=== PATIENT | female | born 1990 | race African-American/Black ===

== ENCOUNTER 2017-06-11 14:48 | Emergency (ER) | payer MEDICAID, OTHER ==
[~2017-06-11] VITALS: Ht 160 cm; Wt 97.5 kg
[~2017-06-11 14:48] MED LIST: CYCL10TA9 PO; NAPR-243 PO; PNT40TEC PO
[2017-06-11] MEDS ORDERED: LEVO25TA5 (15:16)
[2017-06-11] MEDS ORDERED: KETOROLAC 30 MG/ML VIAL IM ONE (15:30)
[2017-06-11] MEDS ORDERED: ONDANSETRON 4 MG (ZOFRAN) ORAL DISSOLVE TAB PO ONE (15:30)
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
[2017-06-11] MEDS ORDERED: ONDA4TAB11 PO (15:48)
[2017-06-11 16:06] VITALS: BP 152/94
--- OUTSIDE RECORDS SUMMARY | 2017-06-15 04:57 | XMS REPORT ---
Author Author BOYD MEAD [facility] eClinicalWorks Address Unknown Phone Unavailable Care Team Providers Care Service Station Cashier Name Role Phone BOYD MEAD CP Unavailable Allergies, Adverse Reactions, Alerts Substance Reaction Event Type N.K.D.A. Info Not Available Non Drug Allergy Problems Problem Type Condition Code Onset Dates Condition Status Problem Asthma, unspecified, unspecified status 493.90 Active Problem Obesity, unspecified 278.00 Active Problem Unspecified hypothyroidism 244.9 Active Assessment Strep pharyngitis J02.0 Active Medications Medication Code System Code Instructions Start Date End Date Status Dosage Amoxicillin [facility] [address]-65 250 MG Orally 3 times a day Feb 20, 2016 Mar 01, 2016 1 capsule Procedures Procedure Coding System Code Date STREP A ASSAY W/OPTIC CPT-4 27328 Feb 20, 2016 Office Visit, Est Pt., Level 2 CPT-4 89114 Feb 20, 2016 Vital Signs Date/Time: Feb 20, 2016 Cardiac Monitoring Heart Rate 76 bpm Weight 243 lbs Height 63 in BMI 43.04 Index Blood Pressure Diastolic 80 mmHg Blood Pressure Systolic 132 mmHg Results Name Result Date Reference Range Unit Abnormality Flag STREP A (IN HOUSE) ----STREP A POSITIVE [id number] ----Control + [id number] ----Lot # [id number] ----Exp date 10/23/201720160220 Summary Purpose eClinicalWorks Submission
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
--- OUTSIDE RECORDS SUMMARY | 2017-06-15 04:57 | XMS REPORT ---
Author Author JENSEN MINA [facility] eClinicalWorks Address Unknown Phone Unavailable Care Team Providers Care Twister Doffer Name Role Phone JENSEN MINA CP Unavailable Allergies, Adverse Reactions, Alerts Substance Reaction Event Type N.K.D.A. Info Not Available Non Drug Allergy Problems Problem Type Condition Code Onset Dates Condition Status Problem Asthma, unspecified, unspecified status 493.90 Active Problem Obesity, unspecified 278.00 Active Problem Unspecified hypothyroidism 244.9 Active Assessment Low grade squamous intraepithelial lesion (LGSIL) on Papanicolaou smear of cervix R87.612 Active Medications Medication Code System Code Instructions Start Date End Date Status Dosage Depo-Provera [facility] [address]-74 150 MG/ML Intramuscular 1 ml Procedures Procedure Coding System Code Date ENDOCERV CURETTAGE W/SCOPE CPT-4 44149 Apr 06, 2015 URINE TEST CPT-4 24861 Apr 06, 2015 Vital Signs Date/Time: Apr 06, 2015 Temperature 97.9 F Weight 217.2 lbs Height 63 in BMI 38.47 Index Blood Pressure Diastolic 82 mmHg Blood Pressure Systolic 124 mmHg Cardiac Monitoring Heart Rate 80 bpm Results Name Result Date Reference Range Unit Abnormality Flag TEST, URINE (IN HOUSE) Summary Purpose eClinicalWorks Submission
--- OUTSIDE RECORDS SUMMARY | 2017-06-15 04:57 | XMS REPORT ---
Author Author BOYD MEAD [facility] Address [address] [place] [address] Care Team Providers Care Medical Receptionist Medical Assistant Name Role Phone BOYD MEAD Unavailable PROBLEMS Type Condition ICD9-CM Code [id number] Code Onset Dates Condition Status SNOMED Code Problem Tension headache G44.209 Active 324070146 Problem Asthma, unspecified, unspecified status 493.90 Active 00877333 Assessment Tension headache G44.209 Apr, Active 223373345 ALLERGIES Substance Reaction Event Type Date Status N.K.D.A. Unknown Non Drug Allergy Apr, Unknown SOCIAL HISTORY No smoking Hx information available PLAN OF CARE VITAL SIGNS Height 63 in 2016-04-25 Weight 235 lbs 2016-04-25 Heart Rate 74 bpm 2016-04-25 Respiratory Rate 20 2016-04-25 BMI 41.62 kg/m2 2016-04-25 Blood pressure systolic 130 mmHg 2016-04-25 Blood pressure diastolic 80 mmHg 2016-04-25 MEDICATIONS Medication Instructions Dosage Frequency Start Date End Date Duration Status Depo-Provera 150 MG/ML 1 ml Active Diclofenac Sodium 75 MG Orally Twice a day 1 tablet with food or milk 12h Apr, May, 30 day(s) Active Cyclobenzaprine HCl 10 mg Orally hs 1 tablet Apr, Active Fioricet 50-325-40 MG Orally every 6 hrs 1 tablet as needed 6h Apr, Active RESULTS No Results PROCEDURES Procedure Date Ordered Related Diagnosis Body Site Office Visit, Est Pt., Level 2 Apr 25, 2016 IMMUNIZATIONS No Known Immunizations
--- OUTSIDE RECORDS SUMMARY | 2017-06-15 04:57 | XMS REPORT ---
Author Author ANA BERTRAND Organization eClinicalWorks Address Unknown Phone Unavailable Care Team Providers Care Silo Operator Name Role Phone ANA BERTRAND CP Unavailable Allergies, Adverse Reactions, Alerts Substance Reaction Event Type N.K.D.A. Info Not Available Non Drug Allergy Problems Problem Type Condition Code Onset Dates Condition Status Assessment Contraception Z30.9 Active Assessment test negative Z32.02 Active Assessment Screening for STD (sexually transmitted disease) Z11.3 Active Problem Asthma, unspecified, unspecified status 493.90 Active Problem Obesity, unspecified 278.00 Active Problem Unspecified hypothyroidism 244.9 Active Assessment Evaluation regarding contraception options Z30.09 Active Assessment Breast cancer screening V76.10 Active Assessment Well woman exam Z01.419 Active Assessment Routine gynecological examination V72.31 Active Medications No Known Medications Procedures Procedure Coding System Code Date No Charge CPT-4 27735 Mar 10, 2015 SPECIMEN HANDLING CPT-4 86165 Mar 10, 2015 URINE TEST CPT-4 11233 Mar 10, 2015 VENIPUNCT, ROUTINE* CPT-4 50986 Mar 10, 2015 Preventive Care Est Pt. Age 18-39 CPT-4 21915 Mar 10, 2015 THER/PROPH/DIAG INJ, SC/IM CPT-4 73516 Mar 10, 2015 DEPO PROVERA (150 MG/ML) CPT-4 J1050 Mar 10, 2015 Vital Signs Date/Time: Mar 10, 2015 Temperature 98 F Weight 217 lbs Height 63 in BMI 38.44 Index Blood Pressure Diastolic 70 mmHg Blood Pressure Systolic 128 mmHg Cardiac Monitoring Heart Rate 76 bpm Results Name Result Date Reference Range Unit Abnormality Flag TEST, URINE (IN HOUSE) Summary Purpose eClinicalWorks Submission
--- OUTSIDE RECORDS SUMMARY | 2017-06-15 04:57 | XMS REPORT ---
Author Author JENSEN MINA [facility] eClinicalWorks Address Unknown Phone Unavailable Care Team Providers Care Global Logistics Analyst Name Role Phone JENSEN MINA Unavailable Allergies No Known Allergies Problems Problem Type Condition Code Onset Dates Condition Status Problem Asthma, unspecified, unspecified status 493.90 Active Problem Obesity, unspecified 278.00 Active Problem Unspecified hypothyroidism 244.9 Active Medications No Known Medications Results No Known Results Summary Purpose eClinicalWorks Submission
--- OUTSIDE RECORDS SUMMARY | 2017-06-15 04:57 | XMS REPORT ---
Author Author DUSTY NGUYEN [facility] Address [address] [place] [address] Care Team Providers Care Pipe And Tank Fabricator Name Role Phone DUSTY NGUYEN Unavailable PROBLEMS Type Condition ICD9-CM Code YDW02-JJ Code Onset Dates Condition Status SNOMED Code Problem Tension headache G44.209 Active 734819453 ALLERGIES No Known Allergies SOCIAL HISTORY Never Assessed PLAN OF CARE VITAL SIGNS Height 63 in 2016-07-15 Weight 238.2 lbs 2016-07-15 Temperature 98.0 degrees Fahrenheit 2016-07-15 Heart Rate 111 bpm 2016-07-15 Respiratory Rate 20 2016-07-15 Oximetry on room air:98 % 2016-07-15 BMI 42.19 kg/m2 2016-07-15 Blood pressure systolic 122 mmHg 2016-07-15 Blood pressure diastolic 80 mmHg 2016-07-15 MEDICATIONS Medication Instructions Dosage Frequency Start Date End Date Duration Status Doxycycline Hyclate 100 mg Orally every 12 hrs 1 capsule 12h Jun, Jul, 10 days Active Tessalon Perles 100 mg Orally Three times a day 1 capsule as needed 8h Jun, Active RESULTS No Results PROCEDURES Procedure Date Ordered Result Body Site MEASURE BLOOD OXYGEN LEVEL Jul 15, 2016 IMMUNIZATIONS No Known Immunizations MEDICAL (GENERAL) HISTORY Type Description Date Medical History Hypothyroidism Surgical History section 2008
--- OUTSIDE RECORDS SUMMARY | 2017-06-15 04:57 | XMS REPORT ---
Author Author DUSTY NGUYEN [facility] Address [address] [place] [address] Care Team Providers Care Manager Video Games Name Role Phone DUSTY NGUYEN Unavailable PROBLEMS Type Condition ICD9-CM Code AYR68-NA Code Onset Dates Condition Status SNOMED Code Problem Tension headache G44.209 Active 442654405 ALLERGIES No Information SOCIAL HISTORY Never Assessed PLAN OF CARE VITAL SIGNS MEDICATIONS Medication Instructions Dosage Frequency Start Date End Date Duration Status Amoxicillin 500 mg Orally 3 times a day 1 capsule 8h Jul, Jul, 10 day(s) Active RESULTS No Results PROCEDURES No Known procedures IMMUNIZATIONS No Known Immunizations MEDICAL (GENERAL) HISTORY Type Description Date Medical History Hypothyroidism Surgical History section 2008
== END 2017-06-11 16:05 | disposition home or self-care (01) ==
LOC: EDUNIT# 14:48 → ER 14:50
DX: S06.0X0A Concussion without loss of consciousness, initial encounter (principal); J45.909 Unspecified asthma, uncomplicated; E03.9 Hypothyroidism, unspecified; F17.200 Nicotine dependence, unspecified, uncomplicated; Y00.XXXA Assault by blunt object, initial encounter; Y92.10 Unspecified residential institution as the place of occurrence of the external cause
CPT/HCPCS: 96372; 99284

== ENCOUNTER 2018-10-13 21:50 | Emergency (ER) | payer OTHER ==
[~2018-10-13] VITALS: Ht 160 cm; Wt 89.4 kg
[~2018-10-13 21:50] MED LIST changes: +LEVO25TA5; +ONDA4TAB11 PO
--- OUTSIDE RECORDS SUMMARY | 2018-10-13 21:58 | XMS REPORT ---
Author Author Migration, Doctor Organization [facility] Address Unknown Phone Unavailable Care Team Providers Care Lead Technician Name Role Phone Migration, Doctor Unavailable Unavailable PROBLEMS Type Condition ICD9-CM Code VFH86-FH Code Onset Dates Condition Status SNOMED Code Problem Obesity (BMI 30-39.9) E66.9 Active 243972014 Problem History of hypothyroidism Z86.39 Active 896204559 Problem Hypothyroidism (acquired) E03.9 Active 028766915 Problem Tension headache G44.209 Active 934826388 ALLERGIES No Information ENCOUNTERS Encounter Location Date Diagnosis [facility] [address] [address] Jul, Dizziness R42 ; Bilateral acute serous otitis media, recurrence not specified H65.03 and Sinus congestion R09.81 [facility] [address] [address] Apr, Hypothyroidism (acquired) E03.9 [facility] [address] [address] Mar, History of hypothyroidism Z86.39 ; Abnormal glucose R73.09 and Obesity (BMI 30-39.9) E66.9 [facility] [address] [address] Mar, Well woman exam Z01.419 [place] [address] [address] Mar, [facility] [address] [address] Jul, [place] [address] [address] Jun, Bronchitis J40 [place] [address] [address] 08 Jun, 2016 [facility] [id number] [place] [address] Apr, Tension headache G44.209 [place] [address] [place] [id number] [place] [address] Feb, Strep pharyngitis J02.0 [place] [address] [place] [id number] [place] [phone] May, Encounter for Depo-Provera contraception Z30.42 [place] [address] [place] [id number] [place] [phone] Apr, [place] [address] [place] [id number] [place] [phone] Mar, Low grade squamous intraepithelial lesion (LGSIL) on Papanicolaou smear of cervix R87.612 [place] [address] [place] [id number] [place] [address] 23 Feb, 2015 Well woman exam Z01.419 ; Routine gynecological examination V72.31 ; Evaluation regarding contraception options Z30.09 ; Breast cancer screening V76.10 ; test negative Z32.02 ; Screening for STD sexually transmitted disease Z11.3 and Contraception Z30.9 [place] [address] [place] [id number] [place] [phone] 14 Aug, 2014 [place] [address] [place] [id number] [place] [phone] 13 Aug, 2014 [place] [id number] [place] [phone] May, [place] [address] [place] [id number] [place] [phone] Mar, [place] [address] [place] [id number] [place] [phone] Mar, [place] [address] [place] [id number] [place] [phone] Mar, [facility] [address] [facility] [id number] [place] [address] Mar, IMMUNIZATIONS No Known Immunizations SOCIAL HISTORY Never Assessed REASON FOR VISIT [facility] PLAN OF CARE VITAL SIGNS MEDICATIONS Medication Instructions Dosage Frequency Start Date End Date Duration Status Albuterol Sulfate 90 mcg/actuation 2 puffs by Inhalation route every 4-6 hours as neededPRNcough or wheezing Mar, Active levothyroxine 75 mcg 1 Tablet by Oral route 1 time per day Mar, Active RESULTS No Results PROCEDURES No Known procedures INSTRUCTIONS MEDICATIONS ADMINISTERED No Known Medications MEDICAL (GENERAL) HISTORY Type Description Date Medical History Hypothyroidism Surgical History section 2008 Surgical History 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
--- OUTSIDE RECORDS SUMMARY | 2018-10-13 21:58 | XMS REPORT ---
Author Author SHRADDHA ZAMBRANO [facility] Address [address] [place] [address] Care Team Providers Care Banking Analyst Name Role Phone SHRADDHA ZAMBRANO Unavailable PROBLEMS Type Condition ICD9-CM Code [id number] Code Onset Dates Condition Status SNOMED Code Problem History of hypothyroidism Z86.39 Active 797956986 Problem Obesity (BMI 30-39.9) E66.9 Active 186079730 Problem Tension headache G44.209 Active 323597177 Problem Hypothyroidism (acquired) E03.9 Active 369559868 ALLERGIES No Information ENCOUNTERS Encounter Location Date Diagnosis [facility] IN [facility] [address] [address] Jul, Dizziness R42 ; Bilateral acute serous otitis media, recurrence not specified H65.03 and Sinus congestion R09.81 [facility] [address] [address] Apr, Hypothyroidism (acquired) E03.9 [facility] [address] [address] 29 Mar, 2017 History of hypothyroidism Z86.39 ; Abnormal glucose R73.09 and Obesity (BMI 30-39.9) E66.9 [facility] IN [facility] [address] [address] Mar, Well woman exam Z01.419 [facility] [address] [place] [address] Mar, [facility] [address] [address] Jul, [facility] [address] [address] Jun, Bronchitis J40 [place] [address] [place] [id number] [place] [address] Jun, [place] [address] [place] [id number] [place] [address] Apr, Tension headache G44.209 [place] [address] [place] [id number] [place] [address] Feb, Strep pharyngitis J02.0 [place] [address] [place] [id number] [place] [address] May, Encounter for Depo-Provera contraception Z30.[address] [address] Apr, [place] [id number] [place] [address] Mar, Low grade squamous intraepithelial lesion (LGSIL) on Papanicolaou smear of cervix R87.612 [place] [address] [place] [id number] [place] [address] 23 Feb, 2015 Well woman exam Z01.419 ; Routine gynecological examination V72.31 ; Evaluation regarding contraception options Z30.09 ; Breast cancer screening V76.10 ; test negative Z32.02 ; Screening for STD sexually transmitted disease Z11.3 and Contraception Z30.9 [place] [address] [place] [id number] [place] [address] 14 Aug, 2014 [place] [address] [place] [id number] [place] [address] 13 Aug, 2014 [place] [address] [place] [id number] [place] [address] May, [place] [address] [place] [id number] [place] [address] Mar, [place] [address] [place] [id number] [place] [address] Mar, [facility] [address] [facility] [id number] [place] [address] Mar, [facility] [address] [facility] [id number] [place] [address] Mar, IMMUNIZATIONS No Known Immunizations SOCIAL HISTORY Never Assessed REASON FOR VISIT Rx per lab/deferred lab PLAN OF CARE VITAL SIGNS MEDICATIONS Medication Instructions Dosage Frequency Start Date End Date Duration Status Levothyroxine Sodium 25 MCG Orally Once a day 1 tablet on an empty stomach in the morning 24h Apr, 30 day(s) Active RESULTS No Results PROCEDURES No Known procedures INSTRUCTIONS MEDICATIONS ADMINISTERED No Known Medications MEDICAL (GENERAL) HISTORY Type Description Date Medical History Hypothyroidism Surgical History section 2008 Surgical History 

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
--- OUTSIDE RECORDS SUMMARY | 2018-10-13 21:58 | XMS REPORT ---
Author Author Migration, Doctor Organization [facility] Address Unknown Phone Unavailable Care Team Providers Care Match Marker Name Role Phone Migration, Doctor Unavailable Unavailable PROBLEMS Type Condition ICD9-CM Code SIC31-CQ Code Onset Dates Condition Status SNOMED Code Problem Obesity (BMI 30-39.9) E66.9 Active 243352335 Problem History of hypothyroidism Z86.39 Active 379589899 Problem Hypothyroidism (acquired) E03.9 Active 622376877 Problem Tension headache G44.209 Active 712453083 ALLERGIES No Information ENCOUNTERS Encounter Location Date Diagnosis [facility] [address] [address] Jul, Dizziness R42 ; Bilateral acute serous otitis media, recurrence not specified H65.03 and Sinus congestion R09.81 [facility] [place] [address] [address] Apr, Hypothyroidism (acquired) E03.9 [facility] [place] [address] [address] Mar, History of hypothyroidism Z86.39 ; Abnormal glucose R73.09 and Obesity (BMI 30-39.9) E66.9 [facility] IN [facility] [address] [address] Mar, Well woman exam Z01.419 [place] [address] [address] Mar, [facility] [place] [address] [address] Jul, [place] [address] [address] Jun, Bronchitis J40 [place] [address] [address] 08 Jun, 2016 [facility] [place] [address] [place] [address] Apr, Tension headache G44.209 [place] [address] [place] [id number] [place] [address] Feb, Strep pharyngitis J02.0 [place] [address] [place] [id number] [place] [address] May, Encounter for Depo-Provera contraception Z30.42 [place] [address] [place] [id number] [place] [address] Apr, [place] [address] [place] [id number] [place] [address] Mar, Low grade squamous intraepithelial lesion (LGSIL) on Papanicolaou smear of cervix R87.612 [place] [address] [place] [id number] [place] [address] 23 Feb, 2015 Well woman exam Z01.419 ; Routine gynecological examination V72.31 ; Evaluation regarding contraception options Z30.09 ; Breast cancer screening V76.10 ; test negative Z32.02 ; Screening for STD sexually transmitted disease Z11.3 and Contraception Z30.9 [place] [address] [place] [id number] [place] [address] 14 Aug, 2014 [place] [address] [place] [id number] [place] [address] 13 Aug, 2014 [place] [address] [place] [address] May, [place] [address] [place] [id number] [place] [address] Mar, [place] [address] [place] [id number] [place] [address] Mar, [place] [address] [place] [id number] [place] [address] Mar, [facility] [place] [address] [facility] [id number] [place] [address] Mar, IMMUNIZATIONS No Known Immunizations SOCIAL HISTORY Never Assessed REASON FOR VISIT EMR-[facility] PLAN OF CARE VITAL SIGNS MEDICATIONS No Known Medications RESULTS No Results PROCEDURES No Known procedures INSTRUCTIONS MEDICATIONS ADMINISTERED No Known Medications MEDICAL (GENERAL) HISTORY Type Description Date Medical History Hypothyroidism Surgical History section 2008 Surgical History 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
--- OUTSIDE RECORDS SUMMARY | 2018-10-13 21:58 | XMS REPORT ---
Author Author SHRADDHA ZAMBRANO [facility] Address [address] [place] [address] Care Team Providers Care Medical Record Administrator Name Role Phone SHRADDHA ZAMBRANO Unavailable PROBLEMS Type Condition ICD9-CM Code AAC61-VV Code Onset Dates Condition Status SNOMED Code Problem History of hypothyroidism Z86.39 Active 546463630 Problem Obesity (BMI 30-39.9) E66.9 Active 451904119 Problem Tension headache G44.209 Active 651468853 Problem Hypothyroidism (acquired) E03.9 Active 353380238 ALLERGIES No Known Allergies ENCOUNTERS Encounter Location Date Diagnosis [facility] IN [facility] [address] [address] Jul, Dizziness R42 ; Bilateral acute serous otitis media, recurrence not specified H65.03 and Sinus congestion R09.81 [facility] [place] [address] [address] Apr, Hypothyroidism (acquired) E03.9 [facility] [place] [address] [address] 29 Mar, 2017 History of hypothyroidism Z86.39 ; Abnormal glucose R73.09 and Obesity (BMI 30-39.9) E66.9 [facility] IN [facility] [address] [place] [id number] [place] [address] Mar, Well woman exam Z01.419 [facility] [place] [address] [address] Mar, [facility] [place] [address] [address] Jul, [facility] [place] [address] [address] Jun, Bronchitis J40 [place] [address] [place] [id number] [place] [address] Jun, [place] [address] [place] [id number] [place] [address] Apr, Tension headache G44.209 [place] [address] [place] [id number] [place] [address] Feb, Strep pharyngitis J02.0 [place] [address] [place] [id number] [place] [address] May, Encounter for Depo-Provera contraception Z30.42 [place] [address] [address] Apr, [place] [address] [place] [id number] [place] [address] Mar, Low grade squamous intraepithelial lesion (LGSIL) on Papanicolaou smear of cervix R87.612 [place] [address] [place] [id number] [place] [address] 23 Feb, 2015 Well woman exam Z01.419 ; Routine gynecological examination V72.31 ; Evaluation regarding contraception options Z30.09 ; Breast cancer screening V76.10 ; test negative Z32.02 ; Screening for STD sexually transmitted disease Z11.3 and Contraception Z30.9 [place] [address] [place] [id number] [place] [address] 14 Aug, 2014 [place] [address] [place] [id number] [place] [address] Aug, [place] [address] [address] May, [place] [address] [place] [id number] [place] [address] Mar, [place] [address] [place] [id number] [place] [address] Mar, [facility] [place] [address] [facility] [id number] [place] [address] Mar, [facility] [place] [address] [facility] [id number] [place] [address] Mar, IMMUNIZATIONS No Known Immunizations SOCIAL HISTORY Never Assessed REASON FOR VISIT Establish Care, pt. states she is needing to have her thyroid checked due to her hypothyroidism, pt. states she has been exercising and dieting, but is not losi ng weight ---CR[place]burn,CCMA PLAN OF CARE Activity Details Follow Up as indicated by lab Reason: VITAL SIGNS Height 63 in 2017-04-16 Weight 214.2 lbs 2017-04-16 Temperature 98.2 degrees Fahrenheit 2017-04-16 Heart Rate 92 bpm 2017-04-16 Respiratory Rate 18 2017-04-16 BMI 37.94 kg/m2 2017-04-16 Blood pressure systolic 121 mmHg 2017-04-16 Blood pressure diastolic 73 mmHg 2017-04-16 MEDICATIONS No Known Medications RESULTS No Results PROCEDURES Procedure Date Ordered Result Body Site ASSAY THYROID STIM HORMONE Apr 16, 2017 ASSAY OF FREE THYROXINE Apr 16, 2017 VENIPUNCT, ROUTINE* Apr 16, 2017 GLYCATED HEMOGLOBIN TEST Apr 16, 2017 COMPREHEN METABOLIC PANEL Apr 16, 2017 LIPID PANEL Apr 16, 2017 INSTRUCTIONS MEDICATIONS ADMINISTERED No Known Medications MEDICAL (GENERAL) HISTORY Type Description Date Medical History Hypothyroidism Surgical History section 2008 Surgical History 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
--- OUTSIDE RECORDS SUMMARY | 2018-10-13 21:58 | XMS REPORT ---
Author Author DANNY LECHUGA [facility] Address [address] [place] [address] Care Team Providers Care Daycare Director Name Role Phone DANNY LECHUGA Unavailable PROBLEMS Type Condition ICD9-CM Code LAK66-GD Code Onset Dates Condition Status SNOMED Code Problem History of hypothyroidism Z86.39 Active 054743674 Problem Obesity (BMI 30-39.9) E66.9 Active 367641372 Problem Tension headache G44.209 Active 022671237 Problem Hypothyroidism (acquired) E03.9 Active 515663855 ALLERGIES No Known Allergies ENCOUNTERS Encounter Location Date Diagnosis [facility] IN [facility] [address] [address] Jul, Dizziness R42 ; Bilateral acute serous otitis media, recurrence not specified H65.03 and Sinus congestion R09.81 [facility] [address] [address] Apr, Hypothyroidism (acquired) E03.9 [facility] [address] [address] Mar, History of hypothyroidism Z86.39 ; Abnormal glucose R73.09 and Obesity (BMI 30-39.9) E66.9 [facility] IN [facility] [address] [place] [id number] [place] [address] Mar, Well woman exam Z01.419 [facility] [address] [address] Mar, [facility] [address] [address] Jul, [facility] [address] [address] Jun, Bronchitis J40 [place] [address] [place] [id number] [place] [address] Jun, [place] [address] [place] [id number] [place] [address] Apr, Tension headache G44.209 [place] [address] [address] Feb, Strep pharyngitis J02.0 [place] [address] [place] [id number] [place] [address] May, Encounter for Depo-Provera contraception Z30.42 [place] [address] [place] [id number] [place] [address] Apr, [place] [address] [address] Mar, Low grade squamous intraepithelial lesion (LGSIL) on Papanicolaou smear of cervix R87.612 [place] [address] [place] [id number] [place] [address] 23 Feb, 2015 Well woman exam Z01.419 ; Routine gynecological examination V72.31 ; Evaluation regarding contraception options Z30.09 ; Breast cancer screening V76.10 ; test negative Z32.02 ; Screening for STD sexually transmitted disease Z11.3 and Contraception Z30.9 [place] [address] [place] [id number] [place] [address] 14 Aug, 2014 [place] [address] [place] [id number] [place] [address] 13 Aug, 2014 [place] [address] [place] [id number] [place] [address] May, [place] [address] [place] [id number] [place] [address] 16 Mar, 2012 [place] [address] [place] [id number] [place] [address] Mar, [facility] [address] [facility] [id number] [place] [address] Mar, [facility] [address] [facility] [id number] [place] [address] Mar, IMMUNIZATIONS No Known Immunizations SOCIAL HISTORY Never Assessed REASON FOR VISIT dizziness/ear pain JStrasserRN PLAN OF CARE Activity Details Follow Up prn Reason: VITAL SIGNS Height 63 in 2017-08-06 Weight 216.6 lbs 2017-08-06 Temperature 97.3 degrees Fahrenheit 2017-08-06 Heart Rate 84 bpm 2017-08-06 Respiratory Rate 20 2017-08-06 BMI 38.36 kg/m2 2017-08-06 Blood pressure systolic 110 mmHg 2017-08-06 Blood pressure diastolic 80 mmHg 2017-08-06 MEDICATIONS Medication Instructions Dosage Frequency Start Date End Date Duration Status Guaifenesin 400 MG Orally every 4 hrs 1 tablet as needed 4h Jul, Jul, 5 days Active Meclizine HCl 25 MG Orally every 8 hours 1 tablet as needed 8h Jul, 5 days Active Levothyroxine Sodium 25 MCG Orally Once a day 1 tablet on an empty stomach in the morning 24h Apr, 30 day(s) Not-Taking RESULTS No Results PROCEDURES No Known procedures INSTRUCTIONS MEDICATIONS ADMINISTERED No Known Medications MEDICAL (GENERAL) HISTORY Type Description Date Medical History Hypothyroidism Surgical History section 2008 Surgical History 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
[2018-10-13] MEDS ORDERED: NS IV 1000 ML 1,000 ML IV ONE (22:14)
[2018-10-13] MEDS ORDERED: fentaNYL INJECTION 100 MCG/2 ML AMP IVP ONE (22:15)
[2018-10-13] MEDS ORDERED: ONDANSETRON 4 MG/2 ML (SDV) Z0FRAN IVP ONE (22:15)
[2018-10-13 22:17] LABS: CLARITY,URINE SLIGHTLY CLOUDY; COLOR,URINE YELLOW; GLUCOSE, URINE (UA) NEGATIVE (NEGATIVE); KETONES,URINE 1+ (NEGATIVE); LEUKOCYTE ESTERASE ,URINE 1+ (NEGATIVE); NITRITE,URINE NEGATIVE (NEGATIVE); PH,URINE 5 (5-9); PROTEIN,URINE 3+ (NEGATIVE); UROBILINOGEN,URINE 4 MG/DL (NORMAL)
[2018-10-13 22:21] LABS: BASOPHILS % (AUTO) 0 % (0-10); EOSINOPHILS # (AUTO) 0.1 10^3/uL (0.0-0.3); EOSINOPHILS % (AUTO) 0 % (0-10); HEMATOCRIT 49 % (35-52); HEMOGLOBIN 16.5 G/DL (11.5-16.0); LYMPHOCYTES # (AUTO) 4.3 X 10^3 (1.0-4.0); LYMPHOCYTES % (AUTO) 21 % (12-44); MEAN CORPUSCULAR HEMOGLOBIN 32 PG (25-34); MEAN CORPUSCULAR HGB CONC 34 G/DL (32-36); MEAN CORPUSCULAR VOLUME 94 FL (80-99); MEAN PLATELET VOLUME 11.2 FL (7.4-10.4); MONOCYTES # (AUTO) 1.4 X 10^3 (0.0-1.0); MONOCYTES % (AUTO) 7 % (0-12); NEUTROPHILS # (AUTO) 14.3 X 10^3 (1.8-7.8); NEUTROPHILS % (AUTO) 71 % (42-75); PLATELET COUNT 317 10^3/uL (130-400); RED CELL DISTRIBUTION WIDTH 13.6 % (10.0-14.5); WHITE BLOOD COUNT 20.2 10^3/uL (4.3-11.0)
[2018-10-13 22:29] LABS: AMORPHOUS SEDIMENT,UR RARE AMOR URATES /LPF; BACTERIA,URINE TRACE /HPF; BILIRUBIN,URINE 1+ (NEGATIVE); RBC,URINE RARE /HPF; WBC,URINE 0-2 /HPF
[2018-10-13 22:41] LABS: LYMPHOCYTES % (MANUAL) 22 %; NEUTROPHILS % (MANUAL) 73 %
[2018-10-13 22:42] LABS: BASOPHILS % (MANUAL) 0 %; EOSINOPHILS % (MANUAL) 1 %; MONOCYTES % (MANUAL) 3 %; RBC MORPH NORMAL; REACTIVE LYMPHOCYTES 1 %
[2018-10-13 22:43] LABS: ALANINE AMINOTRANSFERASE 23 U/L (0-55); ALBUMIN 4.8 GM/DL (3.2-4.5); ALKALINE PHOSPHATASE 89 U/L (40-136); BILIRUBIN,TOTAL 0.4 MG/DL (0.1-1.0); BUN/CREATININE RATIO 9; CARBON DIOXIDE 24 MMOL/L (21-32); CHLORIDE 107 MMOL/L (98-107); CREATININE SERUM 1.02 MG/DL (0.60-1.30); GFR ESTIMATED > 60; GLUCOSE 98 MG/DL (70-105); LIPASE 30 U/L (8-78); POTASSIUM 3.4 MMOL/L (3.6-5.0); SODIUM 146 MMOL/L (135-145); TOTAL PROTEIN 7.9 GM/DL (6.4-8.2)
--- NOTE | 2018-10-13 22:55 | ED Abdominal Pain ---
General Chief Complaint: Abdominal/GI Problems Stated Complaint: ABD PAIN Nursing Triage Note: pt states she has been having abdominal pain for the past week after eating, pt states tonight she has had increased pain in the RUQ that now radiates around to her back, pt states last BM was today Sepsis Screen: No Definite Risk Source of Information: Patient Exam Limitations: No Limitations History of Present Illness Date Seen by Provider: October 13, 2018 Time Seen by Provider: 22:10 Initial Comments This 28-year-old young woman presents to the emergency room with complaints of right upper quadrant pain. She has been having right upper quadrant pain after eating for about 10 days. Tonight it became severe after eating a bratwurst and macaroni salad. She did also vomit. The intense pain started about one hour ago. She denies constipation, diarrhea, fever, and . Allergies and Home Medications Allergies Coded Allergies: No Known Drug Allergies (Unverified , 11/12/13) Home Medications Ondansetron 4 Mg Tab.rapdis, 4 MG PO Q6H PRN for NAUSEA/VOMITING Prescribed by: CHRIS YANG on 06/11/17 1548 Patient Home Medication List Home Medication List Reviewed: Yes Review of Systems Review of Systems Constitutional: no symptoms reported EENTM: No Symptoms Reported Respiratory: No Symptoms Reported Cardiovascular: No Symptoms Reported Gastrointestinal: See HPI Genitourinary: No Symptoms Reported Musculoskeletal: no symptoms reported Skin: no symptoms reported Psychiatric/Neurological: No Symptoms Reported Endocrine: No Symptoms Reported Hematologic/Lymphatic: No Symptoms Reported Past Jrnohox-Cqnpvr-Mhioxd Hx Past Med/Social Hx: Reviewed and Corrections made Patient Social History Alcohol Use: Denies Use Recreational Drug Use: No Smoking Status: Current Everyday Smoker Type Used: Cigarettes Recent Foreign Travel: No Contact w/Someone Who Travel: No Recent Infectious Disease Expo: No Recent Hopitalizations: No Past Medical History Surgeries: No Section Respiratory: Yes Asthma Cardiac: No Neurological: No : No Last Menstrual Period: Sep 05, 2018 Hx : 1 Hx Para: 1 Reproductive Disorders: No Genitourinary: No Gastrointestinal: No Musculoskeletal: No Endocrine: Yes Hypothyroidsim Cancer: No Psychosocial: No Integumentary: No Blood Disorders: No Physical Exam Vital Signs Vital Signs - First Documented 10/13/18 22:02 Temp 97.9 Pulse 86 Resp 16 B/P (MAP) 129/88 (102) Capillary Refill : Less Than 3 Seconds Height/Weight/BMI Height: 5'3.00" Weight: 197lbs. oz. 89.118426gt; BMI Method:Stated General Appearance: WD/WN, moderate distress HEENT: PERRL/EOMI, normal ENT inspection, pharynx normal Neck: normal inspection Respiratory: lungs clear, normal breath sounds, no respiratory distress, no accessory muscle use Cardiovascular: regular rate, rhythm (borderline tachycardia), no edema, no murmur Gastrointestinal: soft, abnormal bowel sounds (decreased), tenderness (right upper quadrant) Extremities: normal inspection, no pedal edema Neurologic/Psychiatric: recovery coordinator II-XII nml as tested, no motor/sensory deficits, alert, normal mood/affect, oriented x 3 Skin: normal color, warm/dry Progress/Results/Core Measures Results/Orders Lab Results Laboratory Tests Test 10/13/18 22:04 10/13/18 22:10 Range/Units Urine Color YELLOW Urine Clarity SLIGHTLY CLOUDY Urine pH 5 5-9 Urine Specific [place] 1.025 H 1.016-1.022 Urine Protein 3+ H NEGATIVE Urine Glucose (UA) NEGATIVE NEGATIVE Urine Ketones 1+ H NEGATIVE Urine Nitrite NEGATIVE NEGATIVE Urine Bilirubin 1+ H NEGATIVE Urine Urobilinogen 4 H NORMAL MG/DL Urine Leukocyte Esterase 1+ H NEGATIVE Urine RBC (Auto) 1+ H NEGATIVE Urine RBC RARE /HPF Urine WBC 0-2 /HPF Urine Squamous Epithelial Cells 10-25 H /HPF Urine Crystals PRESENT H /LPF Urine Amorphous Sediment RARE SANTIAGO URATES H /LPF Urine Bacteria TRACE /HPF Urine Casts NONE /LPF Urine Mucus MODERATE H /LPF Urine Culture Indicated YES White Blood Count 20.2 H 4.3-11.0 10^3/uL Red Blood Count 5.23 4.35-5.85 10^6/uL Hemoglobin 16.5 H 11.5-16.0 G/DL Hematocrit 49 35-52 % Mean Corpuscular Volume 94 80-99 FL Mean Corpuscular Hemoglobin 32 25-34 PG Mean Corpuscular Hemoglobin Concent 34 32-36 G/DL Red Cell Distribution Width 13.6 10.0-14.5 % Platelet Count 317 130-400 10^3/uL Mean Platelet Volume 11.2 H 7.4-10.4 FL Neutrophils (%) (Auto) 71 42-75 % Lymphocytes (%) (Auto) 21 12-44 % Monocytes (%) (Auto) 7 0-12 % Eosinophils (%) (Auto) 0 0-10 % Basophils (%) (Auto) 0 0-10 % Neutrophils # (Auto) 14.3 H 1.8-7.8 X 10^3 Lymphocytes # (Auto) 4.3 H 1.0-4.0 X 10^3 Monocytes # (Auto) 1.4 H 0.0-1.0 X 10^3 Eosinophils # (Auto) 0.1 0.0-0.3 10^3/uL Basophils # (Auto) 0.0 0.0-0.1 10^3/uL Neutrophils % (Manual) 73 % Lymphocytes % (Manual) 22 % Monocytes % (Manual) 3 % Eosinophils % (Manual) 1 % Basophils % (Manual) 0 % Reactive Lymphocytes 1 % Blood Morphology Comment NORMAL Sodium Level 146 H 135-145 MMOL/L Potassium Level 3.4 L 3.6-5.0 MMOL/L Chloride Level 107 98-107 MMOL/L Carbon Dioxide Level 24 21-32 MMOL/L Anion Gap 15 H 5-14 MMOL/L Blood Urea Nitrogen 9 7-18 MG/DL Creatinine 1.02 0.60-1.30 MG/DL Estimat Glomerular Filtration Rate > 60 BUN/Creatinine Ratio 9 Glucose Level 98 70-105 MG/DL Calcium Level 10.0 8.5-10.1 MG/DL Corrected Calcium 8.5-10.1 MG/DL Total Bilirubin 0.4 0.1-1.0 MG/DL Aspartate Amino Transf (AST/SGOT) 16 5-34 U/L Alanine Aminotransferase (ALT/SGPT) 23 0-55 U/L Alkaline Phosphatase 89 40-136 U/L Total Protein 7.9 6.4-8.2 GM/DL Albumin 4.8 H 3.2-4.5 GM/DL Lipase 30 8-78 U/L Serum Test, Qualitative NEGATIVE NEGATIVE My Orders Orders - CONOR ROSENTHAL MD Ua Culture If Indicated (10/13/18 22:09) Ondansetron Injection (Zofran Injectio (10/13/18 22:15) Fentanyl Injection (Sublimaze Injection (10/13/18 22:15) Cbc With Automated Diff (5/28/19 22:14) Comprehensive Metabolic Panel (10/13/18 22:14) Hcg,Qualitative Serum (10/13/18 22:14) Lipase (10/13/18 22:14) Ed Iv/Invasive Line Start (10/13/18 22:14) Ns Iv 1000 Ml (Sodium Chloride 0.9%) (10/13/18 22:14) Manual Differential (10/13/18 22:10) Urine Culture (10/13/18 22:04) Ct Abdomen/Pelvis W (10/13/18 22:47) Iohexol Injection (Omnipaque 350 Mg/Ml 1 (10/13/18 23:30) Received Contrast (Hold Metformin- Contr (10/13/18 23:30) Ns (Ivpb) (Sodium Chloride 0.9% Ivpb Bag (10/13/18 23:30) Ketorolac Injection (Toradol Injection) (10/14/18 00:00) Rx-Ondansetron Po (Rx-Zofran Po) (10/13/18 23:54) Medications Given in ED Current Medications Medications Dose Ordered Sig/Juliocesar Route Start Time Stop Time Status Last Admin Dose Admin Fentanyl Citrate 50 mcg ONCE ONCE IVP 10/13/18 22:15 10/13/18 22:16 DC 10/13/18 22:20 50 MCG Iohexol 100 ml ONCE ONCE IV 10/13/18 23:30 10/13/18 23:31 DC 10/13/18 23:24 100 ML Ketorolac Tromethamine 15 mg ONCE ONCE IVP 10/14/18 00:00 10/14/18 00:01 DC 10/14/18 00:03 15 MG Ondansetron HCl 8 mg ONCE ONCE IVP 10/13/18 22:15 10/13/18 22:16 DC 10/13/18 22:15 8 MG Sodium Chloride 100 ml ONCE ONCE IV 10/13/18 23:30 10/13/18 23:31 DC 10/13/18 23:25 80 ML Sodium Chloride 1,000 ml @ 0 mls/hr Q0M ONCE IV 10/13/18 22:14 10/13/18 22:17 DC 10/13/18 22:28 1,000 MLS/HR Vital Signs/I&O 10/13/18 22:02 Temp 97.9 Pulse 86 Resp 16 B/P (MAP) 129/88 (102) 10/14/18 00:00 Intake Total 1000 ml Balance 1000 ml Blood Pressure Mean: 102 Progress Progress Note #1: Time: 22:52 Progress Note Patient is feeling much better now after receiving IV fluids, Zofran, and fentanyl. She states she would like to go home. However, she has a leukocytosis of 20,000. This warrants further investigation. Unfortunately, ultrasound is not available for another 8 hours. I discussed using CT as an alternative imaging modality. We discussed risks and benefits including risk of radiation exposure. Patient elects to proceed with CT scan. Progress Note #2: Progress Note CT revealed no evidence of acute cholecystitis. There was some evidence of gastroenteritis with fluid filled loops of bowel. Patient had mild residual pain prior to discharge. Toradol was ordered for additional pain management. A take-home packet of Zofran was dispensed. Patient was encouraged to follow-up with her primary care office and seek further evaluation with ultrasound which was not available in the ER this evening. Diagnostic Imaging Diagonstic Imaging: CT Plain Films/CT/US/NM/MRI: abdomen, pelvis Comments CT abdomen and pelvis viewed by me and [facility] report reviewed. There was fluid throughout the small and large bowel with no signs of obstruction or focal intra-abdominal inflammatory process. Findings could relate to viral gastroenteritis. The gallbladder was unremarkable. Departure Impression Primary Impression: Right upper quadrant pain Additional Impressions: Leukocytosis Qualified Codes: D72.829 - Elevated white blood cell count, unspecified Gastroenteritis Disposition: 01 HOME, SELF-CARE Condition: Improved Departure-Patient Inst. Decision time for Depature: 23:50 Referrals: [facility] (PCP/Family) Primary Care Physician Patient Instructions: Acute Abdomen (Belly Pain), Adult (DC), Viral Gastroenteritis Add. Discharge Instructions: Drink plenty of clear liquids. Stick with a clear liquid diet the next 12-24 hours. Gradually advance your diet with small quantities of bland food as tolerated. Eat a low fat, low oil diet. Follow-up with your primary care provider and discuss further evaluation with a gallbladder ultrasound. You may dissolve the Zofran (ondansetron) under your tongue every 4 hours as needed for nausea and vomiting. Return to care if symptoms are worsening, especially if you develop additional symptoms such as fever, uncontrolled vomiting, etc. You may take Tylenol (acetaminophen) up to 1000 mg every 6 hours as needed for pain. Add ibuprofen sparingly up to 600 mg every 6 hours as needed for ulysses tional pain relief. All discharge instructions reviewed with patient and/or family. Voiced understanding. Copy Copies To 1: JENSEN MINA MD, JOSHUA T MD October 13, 2018 22:55
--- NOTE | 2018-10-13 23:29 | NUR ---
pt states her pain has decreased and is now at a 3/10, pt denies any needs or c/o at this time, pt shows no s/s of distress, vs assessed and stable, will continue to monitor
[2018-10-13] MEDS ORDERED: HOLD METFORMIN - RECEIVED CONTRAST 20 ML VIAL IV SCH (23:30)
[2018-10-13] MEDS ORDERED: IOHEXOL 350 MG/ML 100 ML (OMNIPAQUE 350) VIAL IV ONE (23:30)
[2018-10-13] MEDS ORDERED: NS 100 ML (IVPB) BAG IV ONE (23:30)
[2018-10-13] MEDS ORDERED: RX-ONDANSETRON 4 MG ODT (ZOFRAN) PPK #4 SL STA (23:54)
[2018-10-14] MEDS ORDERED: KETOROLAC 30 MG/ML VIAL IVP ONE
[2018-10-14 00:18] VITALS: BP 120/81
--- NOTE | 2018-10-14 07:10 | Diagnostic Imaging Report ---
PROCEDURE: CT abdomen and pelvis with contrast. TECHNIQUE: Multiple contiguous axial images were obtained through the abdomen and pelvis after administration of intravenous contrast. Auto Exposure Controls were utilized during the CT exam to meet ALARA standards for radiation dose reduction. INDICATION: Right upper quadrant abdominal pain. COMPARISON: 11/13/2013 FINDINGS: Included portions of the lung bases are clear. CT abdomen: Multiple air-fluid levels are seen scattered throughout the large and small bowel. Small bowel loops are nondistended. Normal appendix is identified. The kidneys, adrenal glands, spleen, pancreas, and liver have a normal CT appearance. There is no loculated fluid collection, free fluid, nor free air within the abdomen. No abnormal mesenteric or retroperitoneal adenopathy is seen. Bony structures show no acute abnormalities. CT pelvis: Urinary bladder is grossly unremarkable. There is no loculated fluid collection, free fluid, nor free air within the pelvis. No abnormal lymph nodes are identified. Bony structures show no acute abnormalities. IMPRESSION: 1. Multiple air-fluid levels scattered throughout the large and small bowel, but no evidence of small bowel obstruction. Findings are nonspecific, but can be seen with underlying diarrhea/enterocolitis. 2. Normal appendix. Dictated by: Dictated on workstation # [id number]
== END 2018-10-14 00:18 | disposition home or self-care (01) ==
LOC: EDUNIT# 21:50 → ER 21:51
DX: K52.9 Noninfective gastroenteritis and colitis, unspecified (principal); D72.829 Elevated white blood cell count, unspecified; J45.909 Unspecified asthma, uncomplicated; E03.9 Hypothyroidism, unspecified; F17.210 Nicotine dependence, cigarettes, uncomplicated; Z98.890 Other specified postprocedural states
CPT/HCPCS: 36415; 74177; 80053; 81000; 83690; 84703; 85007; 85027; 87088; 96374; 96375

== ENCOUNTER → 2018-10-30 | Outpatient (CLI) | payer OTHER ==
[~2018-10-30] MED LIST changes: +CATHETER FLUSH 10 ML SYR IV PRN
--- NOTE | 2018-10-30 20:50 | Diagnostic Imaging Report ---
HEPATOBILIARY SCAN DATE: October 30, 2018. INDICATION: 28-year-old female, right upper quadrant abdominal pain. COMPARISON: CT abdomen and pelvis, October 13, 2018. PROCEDURE: 5.48 mCi of Tc-99m choletec was administered intravenously and serial anterior planar images over the liver and upper abdomen were obtained. FINDINGS: There is homogenous activity throughout the liver with good clearance of background activity. This indicates good hepatocellular function. Biliary tree activity is seen at 10 minutes. The gallbladder is seen at 15 minutes. There is no enterogastric reflux. The biliary tree is patent. There is no evidence of acute cholecystitis. CCK was administered. Gallbladder ejection fraction was calculated to be 15.4%. IMPRESSION: 1. No evidence of acute cholecystitis. 2. Gallbladder ejection fraction measured below lower limits of normal which may be seen in the setting of biliary dyskinesia and/or chronic cholecystitis. Dictated by: Dictated on workstation # [id number]
== END ==
LOC: CARD 09:55
PROVIDERS: ATTEND Nurse Practitioner Community Health
DX: R10.11 Right upper quadrant pain (principal)
CPT/HCPCS: 78227

== ENCOUNTER 2018-11-13 12:30 | Outpatient (CLI) | payer OTHER ==
[~2018-11-13] VITALS: Ht 160 cm; Wt 85.7 kg
[~2018-11-13 12:30] MED LIST changes: -CATHETER FLUSH 10 ML SYR IV PRN; +PANT40TA3 PO
== END 2018-11-13 12:38 ==
LOC: PREOP 12:30
PROVIDERS: ATTEND Surgery
DX: Z01.818 Encounter for other preprocedural examination (principal)

== ENCOUNTER 2018-11-20 10:28 | Day surgery (SDC) | payer OTHER ==
[~2018-11-20] VITALS: Ht 160 cm; Wt 85.7 kg
[2018-11-20] VITALS (11 sets, daily range): BP systolic 104–143; BP diastolic 55–102
--- NOTE | 2018-11-20 10:35 | Progress Note-Pre Operative ---
Pre-Operative Progress Note H&P Reviewed The H&P was reviewed, patient examined and no changes noted. Date Seen by Provider: Nov 20, 2018 Time Seen by Provider: 10:34 Date H&P Reviewed: Nov 20, 2018 Time H&P Reviewed: 10:34 Pre-Operative Diagnosis: BILIARY DYSKINESIA RUBIN ROB DO Nov 20, 2018 10:35
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
[2018-11-20] MEDS ORDERED: ceFAZolin 2 GM/50 ML NS 50 ML IV ONE (10:45)
[2018-11-20] MEDS ORDERED: fentaNYL INJECTION 100 MCG/2 ML AMP ONE ×2 (10:52→12:13)
[2018-11-20] MEDS ORDERED: ONDANSETRON 4 MG/2 ML (SDV) Z0FRAN ONE (10:52)
[2018-11-20] MEDS ORDERED: proPOfol 200 MG/20 ML (DIPRIVAN) VIAL IV ONE (10:52)
[2018-11-20] MEDS ORDERED: LIDOCAINE PF 2% 5 ML (XYLOCAINE) VIAL ONE (10:52)
[2018-11-20] MEDS ORDERED: IOPAMIDOL 61% 30 ML (ISOVUE 300) VIAL IV ONE (10:52)
[2018-11-20] MEDS ORDERED: DEXAMETHASONE 10 MG/ML (DECADRON) 1 ML VIAL ONE (10:52)
[2018-11-20] MEDS ORDERED: ROCURONIUM 10 MG/ML 5 ML SYRINGE IV ONE (10:52)
[2018-11-20] MEDS ORDERED: BUP/EPI 0.5% 1:200,000 (SENSORCAINE) 30 ML VIAL ONE (10:53)
[2018-11-20] MEDS: LACTATED RINGERS 1,000 ML IV PRN ×2 (10:55→12:18)
[2018-11-20] MEDS ORDERED: MIDAZOLAM 2 MG/2 ML (VERSED) VIAL IV ONE (11:00)
[2018-11-20 11:02] LABS: BASOPHILS % (AUTO) 0 % (0-10); EOSINOPHILS # (AUTO) 0.1 10^3/uL (0.0-0.3); EOSINOPHILS % (AUTO) 1 % (0-10); HEMATOCRIT 46 % (35-52); LYMPHOCYTES # (AUTO) 2.8 X 10^3 (1.0-4.0); LYMPHOCYTES % (AUTO) 31 % (12-44); MEAN CORPUSCULAR HEMOGLOBIN 32 PG (25-34); MEAN CORPUSCULAR HGB CONC 33 G/DL (32-36); MEAN CORPUSCULAR VOLUME 96 FL (80-99); MEAN PLATELET VOLUME 11.5 FL (7.4-10.4); MONOCYTES # (AUTO) 0.8 X 10^3 (0.0-1.0); MONOCYTES % (AUTO) 9 % (0-12); NEUTROPHILS # (AUTO) 5.3 X 10^3 (1.8-7.8); NEUTROPHILS % (AUTO) 59 % (42-75); PLATELET COUNT 187 10^3/uL (130-400); RED CELL DISTRIBUTION WIDTH 13.3 % (10.0-14.5)
[2018-11-20] MEDS ORDERED: SEVOFLURANE (ULTANE) 15 ML INHAL SOLN ONE (11:02)
--- NOTE | 2018-11-20 12:35 | Progress Note-Post Operative ---
Post-Operative Progess Note Surgeon (s)/Flour Mixer Helper (s) Surgeon RUBIN ROB DO Flour Mixer Helper: Dr. Everett Pre-Operative Diagnosis BILIARY DYSKINESIA Post-Operative Diagnosis same Procedure & Operative Findings Date of Procedure 11/20/18 Procedure Performed/Findings lap shadi c ioc Anesthesia Type gen Estimated Blood Loss Estimated blood loss (mL): min Specimens/Packing Specimens Removed gallbladder RUBIN ROB DO Nov 20, 2018 12:35
[2018-11-20] MEDS ORDERED: ACHD5005 PO (12:37)
[2018-11-20] MEDS ORDERED: DOCU-143 PO (12:37)
--- NOTE | 2018-11-20 12:38 | Discharge Inst-Simple/Standard ---
Discharge Inst-Standard Discharge Medications New, Converted or Re-Newed RX: RX on Chart Patient Instructions/Follow Up Plan of Care/Instructions/FU: 2-3 weeks Nadir Activity as Tolerated: Yes Discharge Diet: Regular Diet Other Inst to Patient Follow up Appt: Make appointment for 2-3 weeks. Instructions: No lifting greater than 10 pounds. No strenuous activity. May shower in 24 hours, no tub bath or soaking. Use incentive spirometer at home as directed. No Smoking Skin/Wound Care: You have special glue over incisions it will fall off on its own. Symptoms to Report: Appetite Changes, Extremity Discoloration, Numbness/Tingling, Swelling Increased, Bleeding Excessive, Eyesight Changes, Pain Increased, Urine Color Change, Constipation(Persistent), Fever over 101 degree F, Pain/Pressure in chest, Urinating Difficulty, Cough Up/Vomit Blood, Heart Beat Irreg/Pounding, Pain/Pressure in jaw, Vaginal Bleeding Increase, Cramps in feet or legs, Lightheadedness, Pain/Pressure in shoulder, Diarrhea(Persistent), Memory Changes Suddenly, Questions/Concerns, Weight gain consecutive days, Dizziness/Fainting, Nausea/Vomiting, Shortness of Breath, Weight gain over 2 pounds. If eyes or skin turn yellow notify physician. If questions or concerns contact your physician Or seek help at emergency department. RUBIN ROB DO Nov 20, 2018 12:38
[2018-11-20] MEDS ORDERED: NEOSTIGMINE 3 MG/3 ML VIAL ONE (12:54)
[2018-11-20] MEDS ORDERED: GLYCOPYRROLATE 0.2 MG/ML (ROBINUL) 2 ML VIAL ONE (12:54)
[2018-11-20] MEDS ORDERED: morphine INJ 10 MG/ML 1ML (SYR OR VIAL) IVP ONE (13:00)
[2018-11-20] MEDS ORDERED: ONDANSETRON 4 MG/2 ML (SDV) Z0FRAN IVP PRN (13:00)
--- NOTE | 2018-11-20 13:13 | Diagnostic Imaging Report ---
Indication: Abdominal pain. Surgical cholangiogram. 6 seconds of fluoroscopy and 31 digital images were used in surgery by Dr. Schmitz during cholecystectomy. Impression: Images show cannulation of the cystic duct. The common duct appears clear with no evidence of filling defect or stricture. Contrast appears be flowing into the duodenum. Dictated by: Dictated on workstation # [id number]
[2018-11-20] MEDS: HYDROcodone/APAP 5 MG/325 MG (LORTAB) TAB PO ONE ×2 (13:35→14:20)
[2018-11-20] MEDS ORDERED: HYDROcodone/APAP 5 MG/325 MG (LORTAB) TAB ONE (14:18)
--- NOTE | 2018-11-20 14:33 | Anesthesia-General Post-Op ---
General Patient Condition Mental Status/LOC: Same as Preop Cardiovascular: Satisfactory Nausea/Vomiting: Absent Respiratory: Satisfactory Pain: Controlled Complications: Absent Post Op Complications Complications None Follow Up Care/Instructions Patient Instructions None needed. Anesthesia/Patient Condition Patient Condition Patient is doing well, no complaints, stable vital signs, no apparent adverse anesthesia problems. No complications reported per nursing. BOBBY ELAM CRNA Nov 20, 2018 14:33
--- NOTE | 2018-11-21 23:20 | OPERATIVE REPORT ---
DATE OF SERVICE: 11/20/2018 PREOPERATIVE DIAGNOSIS: Right upper quadrant abdominal pain, biliary dyskinesia. POSTOPERATIVE DIAGNOSIS: Right upper quadrant abdominal pain, biliary dyskinesia. PROCEDURE: Laparoscopic cholecystectomy with intraoperative cholangiogram. SURGEON: Rubin Schmitz DO COMPLETIONS MANAGER: Dr. Everett, assisted in retraction, dissection and closure. ANESTHESIA: General. ESTIMATED BLOOD LOSS: Minimal. COMPLICATIONS: None. INDICATIONS: The patient is a 28-year-old female who has symptoms then radiological findings consistent with biliary dyskinesia. She understands risks and benefits of procedure and wished to proceed with procedure. Consent was signed and on the chart. DESCRIPTION OF PROCEDURE: The patient was taken to the operating suite. She was prepped and draped in sterile fashion. Surgical pause was performed. The 12 mm incision was made just at the umbilicus. Cautery was used to dissect down to the fascia, which was then scored, grasped, elevated. The abdomen was then opened. A 0 Vicryl was placed in a [id number] fashion for closure at the end of the case. A balloon trocar was inserted in the abdomen and pneumoperitoneum was achieved. Under direct visualization of the laparoscope, a 5 mm trocar was then placed in the subxiphoid region and two 5 mm trocars were placed in the right upper quadrant. The gallbladder was grasped, elevated. Multiple adhesions were present, which were then taken down. Cystic duct and cystic artery were then dissected around. Clips were placed on the proximal and distal portion of the cystic artery. Clips were placed on the distal portion of the cystic duct. The cystic duct was then partially transected. Arrow catheter was inserted and cholangiogram was performed. There were no filling defects. Contrast made its way into the duodenum without difficulty. The catheter was then removed. Clips were placed on the proximal portion of the cystic duct and the duct and artery were then transected. Hook cautery used to dissect the gallbladder from the gallbladder fossa achieving hemostasis. Once removed, the gallbladder was grasped and removed through the 12 mm trocar site. Abdomen was irrigated with copious amounts of irrigation and suctioned. Hemostasis was achieved. The abdomen was then desufflated and the trocars were removed. The 0 Vicryl was placed earlier was then tied closing the 12 mm fascial defect. Skin was then closed using 4-0 Monocryl in subcuticular fashion. The abdomen was washed and dried and Skin Affix was placed over incisions. The patient tolerated procedure well without any complications. She was taken to recovery room in stable condition. Job ID: [id number] DocumentID: [id number] Dictated Date: 11/21/2018 16:34:41 Emissions Inspector Date: 11/21/2018 23:19:54 Dictated By: RUBIN SCHMITZ DO
== END 2018-11-20 15:10 | disposition home or self-care (01) ==
LOC: SDC 10:28
PROVIDERS: ATTEND Surgery
DX: K81.1 Chronic cholecystitis (principal); K82.8 Other specified diseases of gallbladder; Z11.2 Encounter for screening for other bacterial diseases; J45.909 Unspecified asthma, uncomplicated; F17.210 Nicotine dependence, cigarettes, uncomplicated; E03.9 Hypothyroidism, unspecified; E66.01 Morbid (severe) obesity due to excess calories; Z68.33 Body mass index [BMI] 33.0-33.9, adult
CPT/HCPCS: 36415; 84703; 85025; 87081

== ENCOUNTER 2019-09-06 08:58 | Emergency (ER) | payer SELFPAY ==
[~2019-09-06] VITALS: Ht 160 cm; Wt 87.1 kg
[~2019-09-06 08:58] MED LIST changes: +ACHD5005 PO; +DOCU-143 PO
--- NOTE | 2019-09-06 09:11 | ED Abdominal Pain ---
General Chief Complaint: Abdominal/GI Problems Stated Complaint: LOWER R SIDE BACK PAIN Source of Information: Patient Exam Limitations: No Limitations History of Present Illness Date Seen by Provider: Sep 06, 2019 Time Seen by Provider: 09:11 Initial Comments 29-year-old female presents with right flank/right lower lumbar pain. Patient reports that started yesterday. It gets worse with any type of movement. She denies any urinary symptoms. Denies any fevers chills nausea vomiting. Reports she was just saying there when the pain started. She has no other systemic complaints. Allergies and Home Medications Allergies Coded Allergies: No Known Drug Allergies (Unverified , 11/13/18) Home Medications Docusate Sodium 100 Mg Capsule, 100 MG PO DAILY Prescribed by: RUBIN ROB on 11/20/18 1237 Hydrocodone Bit/Acetaminophen 1 Tab Tab, 1-2 TAB PO Q6H PRN for PAIN-MODERATE Prescribed by: RUBIN ROB on 11/20/18 1237 Pantoprazole Sodium 40 Mg Tablet.dr, 40 MG PO DAILY, (Reported) Patient Home Medication List Home Medication List Reviewed: Yes Review of Systems Review of Systems Constitutional: No chills, No dizziness, No fever Respiratory: No Symptoms Reported Cardiovascular: No Symptoms Reported Gastrointestinal: No Symptoms Reported Genitourinary: See HPI, Flank Pain Musculoskeletal: see HPI Skin: no symptoms reported Psychiatric/Neurological: No Symptoms Reported Past Ivhsexe-Auzsds-Qinebu Hx Past Med/Social Hx: Reviewed Nursing Past Med/Soc Hx Patient Social History Type Used: Cigarettes 2nd Hand Smoke Exposure: Yes Recent Foreign Travel: No Contact w/Someone Who Travel: No Recent Hopitalizations: No Seasonal Allergies Seasonal Allergies: Yes Past Medical History Surgeries: Yes Section Respiratory: Yes Asthma Cardiac: No Neurological: No Reproductive Disorders: No Sexually Transmitted Disease: No HIV/AIDS: No Genitourinary: No Gastrointestinal: Yes Gall Bladder Disease Musculoskeletal: No Endocrine: Yes Hypothyroidsim HEENT: Yes (GLASSES) Loss of Vision: Denies Hearing Impairment: Denies Cancer: No Psychosocial: No Integumentary: No Blood Disorders: No Adverse Reaction/Blood Tranf: No (N/A) Physical Exam Vital Signs Vital Signs - First Documented 09/06/19 09:10 Temp 37.0 Pulse 107 Resp 20 B/P (MAP) 150/106 (121) Pulse Ox 98 O2 Delivery Room Air Capillary Refill : Height/Weight/BMI Height: 5'3.00" Weight: 189lbs. 0.0oz. 85.708752ou; 33.5 BMI Method:Stated General Appearance: WD/WN, no apparent distress Respiratory: lungs clear, normal breath sounds Cardiovascular: normal peripheral pulses, regular rate, rhythm, no edema Gastrointestinal: non tender, soft Extremities: non-tender Back: CVA tenderness (R), other (pain reproduced with any type of movement of rotational extension or flexion component.) Neurologic/Psychiatric: centrifugal separator II-XII nml as tested, no motor/sensory deficits, alert, normal mood/affect, oriented x 3 Skin: normal color, warm/dry Progress/Results/Core Measures Results/Orders Lab Results Laboratory Tests Test 09/06/19 09:05 Range/Units Urine Color YELLOW Urine Clarity CLOUDY Urine pH 7.0 5-9 Urine Specific [place] 1.020 1.016-1.022 Urine Protein NEGATIVE NEGATIVE Urine Glucose (UA) NEGATIVE NEGATIVE Urine Ketones NEGATIVE NEGATIVE Urine Nitrite NEGATIVE NEGATIVE Urine Bilirubin NEGATIVE NEGATIVE Urine Urobilinogen 0.2 < = 1.0 MG/DL Urine Leukocyte Esterase TRACE H NEGATIVE Urine RBC (Auto) 3+ H NEGATIVE Urine RBC 25-50 H /HPF Urine WBC 0-2 /HPF Urine Squamous Epithelial Cells 0-2 /HPF Urine Crystals PRESENT H /LPF Urine Amorphous Sediment FEW SANTIAGO PHOSPHATE H /LPF Urine Bacteria TRACE /HPF Urine Casts NONE /LPF Urine Mucus NEGATIVE /LPF Urine Culture Indicated NO Urine Test NEGATIVE NEGATIVE My Orders Orders - CORDERO,DONNY L DO Ua Culture If Indicated (09/06/19 09:19) Hcg,Qualitative Urine (09/06/19 09:19) Ketorolac Injection (Toradol Injection) (09/06/19 09:22) Orphenadrine Injection (Norflex Injectio (09/06/19 09:22) Ct Abd/Pelvis Wo(Kidney Stone) (09/06/19 09:43) Abdomen/Kub 1view (09/06/19 10:43) Basic Metabolic Panel (09/06/19 10:43) Vital Signs/I&O 09/06/19 09:10 Temp 37.0 Pulse 107 Resp 20 B/P (MAP) 150/106 (121) Pulse Ox 98 O2 Delivery Room Air Progress Progress Note : Time: 10:46 Progress Note Patient with a 3 mm obstructing stone. She does have some stranding on CT. I will obtain a be BMP and a KUB for Dr. Bazzi. I will prescribe her Lortab, Zofran and Bactrim. She should follow-up with Dr. Simmons's office in 2-3 days. She is discharged home in stable condition Diagnostic Imaging Diagonstic Imaging: CT Plain Films/CT/US/NM/MRI: abdomen, pelvis Comments [place], [place] NAME: [facility] REC#: [id number] PT STATUS: REG ER : 1990 PHYSICIAN: DONNY CORDERO DO ADMIT DATE: 09/06/19/ER Draft Date of Exam:09/06/19 CT ABD/PELVIS WO(KIDNEY STONE) EXAMINATION: CT Abdomen/Pelvis without contrast. TECHNIQUE: Multiple contiguous axial images were obtained through the abdomen and pelvis without the use of intravenous contrast. All CT scans use one or more of the following dose optimizing techniques: automated exposure control, MA and/or KvP adjustment based on a patient size and exam type, or iterative reconstruction. HISTORY: Right-sided pain and hematuria. COMPARISON: 10/13/2018. FINDINGS: Limited views of the lower thorax show mild atelectasis. The liver is normal without focal lesion. There is no biliary ductal dilation. The gallbladder is surgically absent. The pancreas is normal. The spleen is normal. The adrenal glands are normal. There is a 3 mm obstructing stone at the right ureteral orifice with moderate to severe right-sided hydroureteronephrosis and perinephric and periureteral stranding. No left-sided stones are seen. The urinary bladder is normal. The uterus and ovaries are normal. The visualized bowel is normal in caliber without obstruction or inflammation. The appendix is normal. No free fluid or air. No abdominal or pelvic lymphadenopathy. The aorta is normal in caliber without aneurysm. There are no suspicious osseus lesions. IMPRESSION: Obstructing 3 mm stone at the right ureteral orifice with moderate to severe right-sided hydroureteronephrosis and perinephric and periureteral stranding Departure Impression Primary Impression: Calculus of distal right ureter Disposition: HOME, SELF-CARE Condition: Stable Departure-Patient Inst. Referrals: [facility] (PCP/Family) Primary Care Physician LEO ST MD Patient Instructions: Kidney Stones in Adults, How to Strain Your Urine Add. Discharge Instructions: Follow-up with Dr. St's office in 2-3 days. Please call for an appointment Emergency department focuses on treating and ruling out life-threatening diseases. Whenever possible, a diagnosis is given. However, most patients are given an impression based on their history, physical exam, and workup during your brief time in the ER. Information about probable diagnosis and other educational material has been provided. Please take the time to read and understand this information. It is very important that you follow up with a physician as discussed during the visit today. Failure to adhere to your follow-up instructions may lead to severe disability, injury, or so please make sure to keep your appointments or obtain one as requested. Please keep in mind the emergency department is not designed to your primary care or "family doctor" and nonurgent issues are best evaluated by an outpatient physician All discharge instructions reviewed with patient and/or family. Voiced understanding. Scripts Ondansetron (Ondansetron Odt) 4 Mg Tab.rapdis 4 MG PO Q6H PRN for NAUSEA/VOMITING, #20 TAB 0 Refills Prov: DONNY CORDERO DO 09/06/19 Sulfamethoxazole/Trimethoprim (Bactrim Ds Tablet) 1 Each Tablet 1 EACH PO BID for 5 Days, #10 TAB Prov: QING CORDEROR L DO 09/06/19 QING CORDEROR L DO Sep 06, 2019 09:11
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
[2019-09-06] MEDS ORDERED: KETOROLAC 30 MG/ML VIAL IM STA (09:22)
[2019-09-06] MEDS ORDERED: ORPHENADRINE 60 MG/2 ML (NORFLEX) AMP IM STA (09:22)
[2019-09-06 09:31] LABS: BILIRUBIN,URINE NEGATIVE (NEGATIVE); CLARITY,URINE CLOUDY; COLOR,URINE YELLOW; GLUCOSE, URINE (UA) NEGATIVE (NEGATIVE); KETONES,URINE NEGATIVE (NEGATIVE); LEUKOCYTE ESTERASE ,URINE TRACE (NEGATIVE); NITRITE,URINE NEGATIVE (NEGATIVE); PROTEIN,URINE NEGATIVE (NEGATIVE)
[2019-09-06 09:39] LABS: AMORPHOUS SEDIMENT,UR FEW AMOR PHOSPHATE /LPF; BACTERIA,URINE TRACE /HPF; RBC,URINE 25-50 /HPF; SQUAMOUS EPITHELIAL CELL,UR 0-2 /HPF; WBC,URINE 0-2 /HPF
--- NOTE | 2019-09-06 10:34 | Diagnostic Imaging Report ---
EXAMINATION: CT Abdomen/Pelvis without contrast. TECHNIQUE: Multiple contiguous axial images were obtained through the abdomen and pelvis without the use of intravenous contrast. All CT scans use one or more of the following dose optimizing techniques: automated exposure control, MA and/or KvP adjustment based on a patient size and exam type, or iterative reconstruction. HISTORY: Right-sided pain and hematuria. COMPARISON: 10/13/2018. FINDINGS: Limited views of the lower thorax show mild atelectasis. The liver is normal without focal lesion. There is no biliary ductal dilation. The gallbladder is surgically absent. The pancreas is normal. The spleen is normal. The adrenal glands are normal. There is a 3 mm obstructing stone at the right ureteral orifice with moderate to severe right-sided hydroureteronephrosis and perinephric and periureteral stranding. No left-sided stones are seen. The urinary bladder is normal. The uterus and ovaries are normal. The visualized bowel is normal in caliber without obstruction or inflammation. The appendix is normal. No free fluid or air. No abdominal or pelvic lymphadenopathy. The aorta is normal in caliber without aneurysm. There are no suspicious osseus lesions. IMPRESSION: Obstructing 3 mm stone at the right ureteral orifice with moderate to severe right-sided hydroureteronephrosis and perinephric and periureteral stranding. Dictated by: Dictated on workstation # [id number]
[2019-09-06] MEDS ORDERED: ONDA4TAB11 PO (10:51)
[2019-09-06] MEDS ORDERED: SULF1TAB35 PO (10:51)
[2019-09-06] MEDS ORDERED: HYDR-83 PO (10:51)
--- NOTE | 2019-09-06 11:12 | Diagnostic Imaging Report ---
INDICATION: Abdominal pain Abdominal film obtained at 11:03 a.m. Abdominal bowel gas pattern is unremarkable. There is mild/moderate stool in the colon. There are Surgiclips in the right upper quadrant. There is a small calcification in the right side of the pelvis just to the right of the midline, measuring about 2 mm, this would appear to correlate with the stone at the right UVJ seen on the recent CT study. IMPRESSION: Small tubular calcification in right side of pelvis likely correlates with the stone at the right UVJ seen on the CT of earlier today. The abdominal bowel gas pattern is unremarkable with moderate stool throughout the colon. Patient has had prior cholecystectomy. Dictated by: Dictated on workstation # [id number]
[2019-09-06 11:16] VITALS: BP 132/100
[2019-09-06 11:24] LABS: CHLORIDE 109 MMOL/L (98-107); POTASSIUM 3.6 MMOL/L (3.6-5.0); SODIUM 142 MMOL/L (135-145)
[2019-09-06 11:25] LABS: CALCIUM 8.8 MG/DL (8.5-10.1)
[2019-09-06 11:26] LABS: GLUCOSE 97 MG/DL (70-105)
[2019-09-06 11:27] LABS: CARBON DIOXIDE 23 MMOL/L (21-32)
[2019-09-06 11:30] LABS: CREATININE SERUM 0.91 MG/DL (0.60-1.30); GFR ESTIMATED > 60
[2019-09-06 11:31] LABS: BUN/CREATININE RATIO 10
== END 2019-09-06 11:16 | disposition home or self-care (01) ==
LOC: EDUNIT# 08:58 → ER 08:59
DX: N20.1 Calculus of ureter (principal); J45.909 Unspecified asthma, uncomplicated; E03.9 Hypothyroidism, unspecified
CPT/HCPCS: 36415; 74018; 74176; 80048; 81000; 84703

== ENCOUNTER 2020-02-12 23:54 | Emergency (ER) | payer SELFPAY ==
[~2020-02-12] VITALS: Ht 160 cm; Wt 88.4 kg
[~2020-02-12 23:54] MED LIST changes: -PANT40TA3 PO; +PANT40TA52 PO; +SULF1TAB35 PO
--- NOTE | 2020-02-13 00:25 | ED Lower Extremity ---
General Chief Complaint: Lower Extremity Stated Complaint: R FOOT PAIN Nursing Triage Note: EARLIER IN THE WEEK DROPPED A BAG OF ICE ON HER RIGHT FOOT AND HURT IT. HAS KEPT IT ELEVATED AND FELT BETTER UNTIL TODAY WHEN SHE SQUATED DOWN ON HER TOES THEN SHE FELT A SHARP PAIN IN THE TOP OF HER FOOT. SINCE HAS BEEN KEEPING ICE ON IT KEEPING IT ELEVATED AND TOOK SOME IBUPROFEN AROUND 1900. Nursing Sepsis Screen: No Definite Risk Source: patient History of Present Illness Date Seen by Provider: Feb 13, 2020 Time Seen by Provider: 00:05 Initial Comments PT ARRIVES VIA POV FROM HOME C/O PAIN TO TOP OF RIGHT FOOT X 5-6 DAYS STATES SHE DROPPED A BAG OF ICE ON THIS FOOT ON Friday02/07/20 AT HOME STATES PAIN WAS WORSE TONIGHT, AFTER SQUATTING DOWN ON HER TOES NO PARESTHESIAS OR MOTOR DEFICITS HAS NOT SOUGHT CARE UNTIL TONIGHT TOOK IBUPROFEN X 1 TONIGHT AT 1900 LMP 01/22/20 PCP: DANITA Allergies and Home Medications Allergies Coded Allergies: No Known Drug Allergies (Unverified , 11/13/18) Home Medications Docusate Sodium 100 Mg Capsule, 100 MG PO DAILY Prescribed by: RUBIN ROB on 11/20/18 1237 Hydrocodone Bit/Acetaminophen 1 Tab Tab, 1-2 TAB PO Q6H PRN for PAIN-MODERATE Prescribed by: RUBIN ROB on 11/20/18 1237 Hydrocodone/Acetaminophen 1 Each Tablet, 1 EACH PO Q8H Prescribed by: DONNY CORDERO on 09/06/19 1051 Naproxen 500 Mg Tablet.dr, 500 MG PO BID Prescribed by: WHIT FAITH on 02/13/20 0100 Ondansetron 4 Mg Tab.rapdis, 4 MG PO Q6H PRN for NAUSEA/VOMITING Prescribed by: DONNY CORDERO on 09/06/19 1051 Pantoprazole Sodium 40 Mg Tablet.dr, 40 MG PO DAILY, (Reported) Sulfamethoxazole/Trimethoprim 1 Each Tablet, 1 EACH PO BID Prescribed by: DONNY CORDERO on 09/06/19 1051 Patient Home Medication List Home Medication List Reviewed: Yes Review of Systems Constitutional: no symptoms reported LMP: Jan 22, 2020 Control/STD Prophylaxis: None Musculoskeletal: see HPI Skin: no symptoms reported Psychiatric/Neurological: No Symptoms Reported Past Yoikytf-Wbbpue-Gdzdjy Hx Patient Social History Alcohol Use: Denies Use Recreational Drug Use: No Smoking Status: Current Everyday Smoker Type Used: Cigarettes 2nd Hand Smoke Exposure: Yes Recent Foreign Travel: No Contact w/Someone Who Travel: No Recent Infectious Disease Expo: No Recent Hopitalizations: No Physical Abuse: No Sexual Abuse: No Mistreated: No Fear: No Seasonal Allergies Seasonal Allergies: Yes Past Medical History Surgeries: Yes (LEFT EYE CORRECTIVE SURGERY AGE 3; X 1) Section, Eye Surgery, Gallbladder Respiratory: Yes Asthma Cardiac: No Neurological: No Last Menstrual Period: Jan 22, 2020 Reproductive Disorders: No Sexually Transmitted Disease: No HIV/AIDS: No Genitourinary: No Gastrointestinal: Yes Gall Bladder Disease Musculoskeletal: No Endocrine: Yes Hypothyroidsim HEENT: Yes (GLASSES; LEFT EYE CORRECTIVE SURGERY AGE 3) Loss of Vision: Denies Hearing Impairment: Denies Cancer: No Psychosocial: No Integumentary: No Blood Disorders: No Adverse Reaction/Blood Tranf: No (N/A) Physical Exam Vital Signs Vital Signs - First Documented 02/12/20 23:57 Temp 36.7 Pulse 97 Resp 20 B/P (MAP) 154/108 (123) Pulse Ox 100 Capillary Refill : Less Than 3 Seconds Height, Weight, BMI Height: 5'3.00" Weight: 189lbs. 0.0oz. 85.978154cv; 34.00 BMI Method:Stated General Appearance: WD/WN Legs: right leg normal inspection Ankles: right ankle normal inspection Feet: right foot other (TENDERNESS TO TOP OF FOOT, MOTOR/SENSORY/VASCULAR INTACT. NO EXTERNAL EVIDENCE OF TRAUMA, NO SWELLING. PT ABLE TO BEAR WEIGHT ON FOOT. ) Neurologic/Tendon: normal sensation, normal motor functions, normal tendon functions Neurologic/Psychiatric: no motor/sensory deficits, alert, normal mood/affect, oriented x 3 Skin: normal color, warm/dry; No ecchymosis Procedures/Interventions Splinting and Joint Reduction : Splints: Post Op Shoe Progress/Results/Core Measures Results/Orders My Orders Orders - WHIT FAITH DO Foot, Right, 3 View (02/13/20 00:15) Post-Op Shoe (02/13/20 00:56) Rx-Naproxen (Rx-Naprosyn) (02/13/20 00:56) Vital Signs/I&O 02/12/20 02/13/20 23:57 01:35 Temp 36.7 Pulse 97 109 Resp 20 18 B/P (MAP) 154/108 (123) 148/106 Pulse Ox 100 97 Blood Pressure Mean: 123 Diagnostic Imaging Comments XRAYS RIGHT FOOT--NO ACUTE PROCESS, PENDING RADIOLOGIST REVIEW Reviewed: Reviewed by Me Departure Impression Primary Impression: Contusion of right foot Disposition: HOME, SELF-CARE Condition: Stable Departure-Patient Inst. Referrals: [facility] (PCP/Family) Primary Care Physician Patient Instructions: Contusion (DC) Add. Discharge Instructions: ALTERNATE ICE AND HEAT TO AREA AT 20 MINUTE INTERVALS WEAR POSTOP SHOE NEEDED FOR COMFORT FOLLOW UP WITH [facility] THIS WEEK FOR FURTHER CARE All discharge instructions reviewed with patient and/or family. Voiced understanding. Scripts Naproxen (Naproxen) 500 Mg Tablet. 500 MG PO BID, #20 TAB Prov: WHIT FAITH DO 02/13/20 WHIT FAITH DO Feb 13, 2020 00:25
[2020-02-13] MEDS ORDERED: RX-NAPROXEN (NAPROSYN) 250 MG TAB PPK#4 PO STA (00:56)
[2020-02-13] MEDS ORDERED: NAPR500T8 PO (01:00)
[2020-02-13 01:35] VITALS: BP 148/106
--- NOTE | 2020-02-13 06:48 | Diagnostic Imaging Report ---
Indication: Right foot injury 3 views of the right foot show no fracture, dislocation or other acute abnormalities. IMPRESSION: Negative right foot Dictated by: Dictated on workstation # [id number]
== END 2020-02-13 01:35 | disposition home or self-care (01) ==
LOC: EDUNIT# 23:54 → ER 23:55
DX: S90.31XA Contusion of right foot, initial encounter (principal); F17.210 Nicotine dependence, cigarettes, uncomplicated; W20.8XXA Other cause of strike by thrown, projected or falling object, initial encounter
CPT/HCPCS: 73630